=== PATIENT | female | born 1950 | race Caucasian/White ===

== ENCOUNTER 2019-03-14 15:44 | Observation (INO) ==
[2019-03-14 16:56] LABS: Basophils % 0.2 % (0.0-0.8); Eosinophils % 0.1 % (0.00-10.9); Hematocrit 44.4 VOL% (35.7-47.0); Immature Granulocytes % 0.4 %; Immature Granulocytes Absolute 0.06 #; Lymphocytes # 1.4 10*3/uL (1.4-4.0); Mean Corpuscular HGB Conc 31.5 GM/DL (32-36); Mean Corpuscular Volume 87.2 FL (87-102); Mean Platelet Volume 9.6 FL (9.6-12.0); Monocytes % 6.8 % (1.7-12.7); Neutrophils % 82.5 % (38.7-73.9); Platelet Count 229 T/CUMM (130-400); Red Blood Count 5.09 MC/CUMM (3.8-5.5); Red Cell Distribution Width 13.3 % (9.3-17.3); White Blood Count 13.8 T/CUMM (4-12)
[2019-03-14 17:18] LABS: Alanine Aminotransferase 23 U/L (13-56); Albumin 3.8 G/DL (3.4-5.0); Alkaline Phosphatase 67 U/L (45-117); Aspartate Amino Transferase 12 U/L (0-37); Bilirubin,Total < 0.39 MG/DL (0.2-1.0); Blood Urea Nitrogen 13 MG/DL (7-18); Calcium 9.8 MG/DL (8.5-10.1); Glucose 119 MG/DL (74-106); Osmolality,Calculated 277.5 MOS/KG (273-304); Total Protein 7.6 G/DL (6.4-8.3)
[2019-03-14 17:25] LABS: Apearance,Urine CLEAR (Clear); Bilirubin,Urine Negative (Negative); Blood, Urine Negative (Negative); Glucose,Urine (UA) >=500 mg/dL (Negative); Ketones,Urine 20 mg/dL (Negative); Mucus,Urine Occasional /LPF (Occasional); Nitrite,Urine Negative (Negative); Protein,Urine Negative; RBC,Urine 1 /HPF (0-4); Urine Color Straw (Yellow); Urine Specific Gravity 1.011 (1.001-1.035); Urine Urobilinogen < 2.0 EU/DL (0.2-1.0); WBC,Urine <1 /HPF (0-6)
[2019-03-14] MEDS ORDERED: GLUCAGON 1 MG VIAL IM PRN (18:27)
[2019-03-14] MEDS ORDERED: ACETAMINOPHEN 325 MG TABLET PO PRN (18:27)
[2019-03-14] MEDS ORDERED: DEXTROSE 10% 250 ML BAG IV PRN (18:27)
[2019-03-14] MEDS ORDERED: ONDANSETRON 4 MG/2 ML VIAL IV PRN (18:27)
[2019-03-14] MEDS: LACTATED RINGERS 1,000 ML IV SCH (19:12)
[2019-03-14] MEDS: cefOXitin 2,000 MG in SYRINGE 1 EACH IV SCH (20:57)
[2019-03-14] MEDS: INSULIN LISPRO 100 UNIT/ML SUBCUT SCH (20:58)
[2019-03-15] MEDS: cefOXitin 2,000 MG in SYRINGE 1 EACH IV SCH ×3 (02:44→14:17)
[2019-03-15] MEDS: LACTATED RINGERS 1,000 ML IV SCH ×2 (02:48→13:55)
[2019-03-15] MEDS ORDERED: INDOCYANINE GREEN 25 MG VIAL IV ONE ×2 (07:07→07:43)
[2019-03-15] MEDS ORDERED: cefOXitin 2,000 MG in SYRINGE 1 EACH IV ONE (07:30)
[2019-03-15] MEDS ORDERED: ENOXAPARIN 40 MG/0.4 ML SYRINGE SUBCUT SCH (07:30)
[2019-03-15] MEDS: INSULIN LISPRO 100 UNIT/ML SUBCUT SCH ×3 (08:00→16:53)
[2019-03-15] MEDS ORDERED: PANTOPRAZOLE 40 MG TABLET PO SCH (09:00)
[2019-03-15] MEDS ORDERED: LIDOCAINE 1%/EPI INJ 20 ML VIAL ONE (11:04)
[2019-03-15] MEDS ORDERED: TISSUE ADHESIVE 1 EACH APPLICATOR TOP ONE (11:04)
[2019-03-15] MEDS ORDERED: BUPIVACAINE MPF 0.25% /EPI 30 ML VIAL ONE (11:04)
[2019-03-15] MEDS ORDERED: fentaNYL 100 MCG/2 ML VIAL ONE (13:34)
[2019-03-15] MEDS ORDERED: PROPOFOL 200 MG/20 ML VIAL IV ONE (13:34)
[2019-03-15] MEDS ORDERED: SEVOFLURANE 1 UNIT/15 MINUTE INH ONE (13:34)
[2019-03-15] MEDS ORDERED: LACTATED RINGERS 1,000 ML IV ONE (13:35)
[2019-03-15] MEDS ORDERED: KETOROLAC 30 MG/1 ML VIAL ONE (13:35)
[2019-03-15] MEDS ORDERED: SUCCINYLCHOLINE 200 MG/10 ML VIAL ONE (13:35)
[2019-03-15] MEDS ORDERED: ONDANSETRON 4 MG/2 ML VIAL ONE (13:35)
[2019-03-15] MEDS ORDERED: DEXAMETHASONE 4 MG/1 ML VIAL ONE (13:35)
[2019-03-15] MEDS ORDERED: DEXTROSE 10% 25 GM/250 ML BAG IV PRN (14:04)
[2019-03-15] MEDS ORDERED: GLUCAGON 1 MG VIAL IM PRN (14:04)
[2019-03-15 16:39] VITALS: BP 136/70
== END 2019-03-15 17:20 | disposition home or self-care (01) ==
LOC: N.ED 15:44 → N.EDINP 15:44 → N.3E 18:35
PROVIDERS: ADMIT Surgery; ATTEND Surgery